=== PATIENT | female | born 1965 | race Caucasian/White ===

== ENCOUNTER 2016-10-25 08:38 | Day surgery (SDC) | payer OTHER ==
[~2016-10-25] VITALS: Ht 162.6 cm; Wt 63.2 kg
[2016-10-25 10:00] VITALS: Ht 162.6 cm; Wt 63.2 kg
[2016-10-25 10:07] VITALS: BP 118/73; PULSE 59; RESP 24
[2016-10-25] MEDS ORDERED: CITA10TA84 PO (10:19)
[2016-10-25] MEDS ORDERED: OMEP20CA16 PO (10:19)
[2016-10-25] MEDS ORDERED: FENTAnyl 50 MCG/ML VIAL ONE (11:05)
[2016-10-25] MEDS ORDERED: MIDAZOLAM 1 MG/ML 2 ML INJ ONE ×2 (11:05)
[2016-10-25 11:15] VITALS: BP 104/66; PULSE 50; RESP 18
--- NOTE | 2016-10-25 11:57 | GILP ---
DATE OF PROCEDURE: 10/25/2016 PROCEDURE: Esophagogastroduodenoscopy with biopsy. SURGEON: Kelly Samaniego MD INDICATION: A 50-year-old female undergoing this procedure for chronic heartburn, not responding to PPI. The purpose is to evaluate upper GI tract to rule out reflux esophagitis or Schmidt's. The r isk of the procedure, related and unrelated complications, anesthetic risks, sedative risks, alterna tives discussed and informed consent was obtained. DESCRIPTION OF PROCEDURE: The patient was brought to the GI lab, sedated with Versed 4 mg, fentanyl 100 mcg. After optimal sedation, scope was passed with much ease into esophagus which was grossly within normal limits. Z-line was at 35 cm. Stomach mucosa revealed chronic gastritis, four biopsie s obtained. Duodenum first and second part was within normal limits. Retroflexion was normal. Sco pe was straightened out and removed with good patient tolerance. Z line was totally normal and she had a gastric inlet within the cricopharyngeal sphincter. IMPRESSION: 1. Gastric inlet, quarter size, within the cricopharyngeal sphincter. 2. Normal esophagus. 3. Normal Z-line at 35 cm. 4. Chronic gastritis. 5. Normal duodenum. PLAN: Review the histopathology. We will treat the patient with a PPI, dietary modification, life style change and reassurance. Dictated By: KELLY SAMANIEGO MD PJ/AMAYA Conf#: [id number] DID#: [id number] CC: SCARLET MANRIQUEZ MD; KELLY SAMANIEGO MD;*EndCC*
== END 2016-10-25 12:02 | disposition home or self-care (01) ==
LOC: GIL 08:38
PROVIDERS: ATTEND Internal Medicine Gastroenterology
DX: K29.50 Unspecified chronic gastritis without bleeding (principal)
CPT/HCPCS: 43239; 84703; 88305; 88312; J2250; J3010; Z7610